=== PATIENT | female | born 1935 | race Caucasian/White ===

== ENCOUNTER 2020-02-18 12:14 | Outpatient (REF) | payer MEDICARE, SELFPAY ==
--- NOTE | 2020-02-18 | MM_ITS ---
EXAMINATION: MM DIAGNOSTIC DIGITAL BREAST TOMOSYNTHESIS, BILATERAL CLINICAL INFORMATION: Probable benign calcifications posterior outer left breast initially noted at baseline exam 2018. Due for yearly. The lifetime risk of breast cancer based on the Tyrer-Cuzick Model is 1.1%. COMPARISON: Mammography: 03/17/2019, 09/11/2018 (diagnostic, BI-RADS 3). TECHNIQUE: Digital breast tomosynthesis is performed in both the craniocaudal and mediolateral oblique views along with computer-aided detection (CAD). Synthesized 2D images are generated from the tomosynthesis. Additional magnification left CC and magnification left ML x2 views are obtained. FINDINGS: There are scattered areas of fibroglandular density (ACR BI-RADS breast composition Category b). Parenchymal pattern is similar to prior studies. There is no interval mass or architectural abnormality or abnormal calcifications. There is an intramammary node again seen posterior upper outer left breast. Scattered dermal lesions again overlie each breast. The left breast calcifications for follow-up regionally distributed posterior outer breast appear round and similar in number and distribution to prior diagnostic exam. Calcifications will be reassessed again at next bilateral annual mammography to include magnification views. Results are provided to the patient at time of visit by the technologist. IMPRESSION: No significant changes from prior studies. Probable benign left breast calcifications stable. ASSESSMENT: BI-RADS 3: Probably Benign RECOMMENDATION: Diagnostic mammography at time of next annual exam, due in 12 months. This patient's information was entered into a reminder system with a target due date for their next mammogram.
== END 2020-02-18 12:15 | disposition home or self-care (01) ==
LOC: HO.MAMMO 12:14
PROVIDERS: PCP Internal Medicine Medical Oncology; Visit Provider Internal Medicine Medical Oncology
DX: R92.1 Mammographic calcification found on diagnostic imaging of breast (principal)
CPT/HCPCS: 77062; 77066; 78013

== ENCOUNTER 2021-02-19 12:07 | Outpatient (REF) | payer MEDICARE, SELFPAY ==
--- NOTE | ~2021-02-19 | MM_ITS ---
EXAMINATION: MM DIAGNOSTIC DIGITAL BREAST TOMOSYNTHESIS, BILATERAL CLINICAL INFORMATION: Due for yearly. Also follow-up probable benign calcifications posterior outer left breast initially noted at baseline exam 2018. The lifetime risk of breast cancer based on the Tyrer-Cuzick Model is 1%. COMPARISON: Mammography: 02/18/2020, 03/17/2019, 09/11/2018 (baseline). TECHNIQUE: Digital breast tomosynthesis is performed in both the craniocaudal and mediolateral oblique views along with computer-aided detection (CAD). Synthesized 2D images are generated from the tomosynthesis. Additional views are provided obtained: Exaggerated right CC, right MLO, magnification left CC, magnification left ML. FINDINGS: There are scattered areas of fibroglandular density (ACR BI-RADS breast composition Category b). Parenchymal pattern is similar to prior exams. There is stable parenchymal asymmetry central 12:00 right breast similar to prior exams. Intramammary node again seen posterior upper outer left breast. There is no developing density or interval mass or architectural abnormality. The fine calcifications for follow-up posterior outer left breast are stable and now considered to be benign. Results are provided to the patient at time of visit by the technologist. MM/MM tomosynthesis diagnostic BI IMPRESSION: No significant changes from prior studies. ASSESSMENT: BI-RADS 2: Benign RECOMMENDATION: Routine annual mammography screening. This patient's information was entered into a reminder system with a target due date for their next mammogram.
== END 2021-02-19 12:08 | disposition home or self-care (01) ==
LOC: HO.MAMMO 12:07
PROVIDERS: Visit Provider Internal Medicine Medical Oncology
DX: R92.1 Mammographic calcification found on diagnostic imaging of breast (principal)
CPT/HCPCS: 77062; 77066

== ENCOUNTER 2022-04-09 10:07 | Outpatient (REF) | payer MEDICARE, SELFPAY ==
--- NOTE | ~2022-04-09 | MM_ITS ---
EXAMINATION: MM SCREENING DIGITAL BREAST TOMOSYNTHESIS, BILATERAL CLINICAL INFORMATION: Screening. Asymptomatic. COMPARISON: Mammography: 02/19/2021, 02/18/2020, 03/17/2019, 09/11/2018 (baseline) TECHNIQUE: Digital breast tomosynthesis is performed in both the craniocaudal and mediolateral oblique views along with computer-aided detection (CAD). Synthesized 2D images are generated from the tomosynthesis. Additional right MLO view is provided. FINDINGS: There are scattered areas of fibroglandular density (ACR BI-RADS breast composition Category b). Parenchymal pattern is similar to prior studies. Again, there is a chronic asymmetric density central upper right breast mid depth. Left breast has probable intramammary node posterior upper outer quadrant. Calcifications posterior central outer left breast are stable. There is no developing density or interval mass or architectural abnormality from prior studies. No significant changes. MM/MM tomosynthesis screening BI IMPRESSION: No significant changes from prior exams. ASSESSMENT: BI-RADS 2: Benign RECOMMENDATION: Routine annual mammography screening. This patient's information was entered into a reminder system with a target due date for their next mammogram.
== END 2022-04-09 10:08 | disposition home or self-care (01) ==
LOC: HO.MAMMO 10:07
PROVIDERS: PCP Internal Medicine; Visit Provider Internal Medicine Medical Oncology
DX: Z12.31 Encounter for screening mammogram for malignant neoplasm of breast (principal)
CPT/HCPCS: 77063; 77067

== ENCOUNTER 2023-04-22 10:28 | Outpatient (REF) | payer MEDICARE, SELFPAY ==
--- NOTE | ~2023-04-22 | MM_ITS ---
EXAMINATION: MM SCREENING DIGITAL BREAST TOMOSYNTHESIS, BILATERAL CLINICAL INFORMATION: Screening. Asymptomatic. COMPARISON: Mammography: This study is compared with prior exams dating back to 2019. TECHNIQUE: Digital breast tomosynthesis is performed in both the craniocaudal and mediolateral oblique views along with computer-aided detection (CAD). Synthesized 2D images are generated from the tomosynthesis. FINDINGS: There are scattered areas of fibroglandular density (ACR BI-RADS breast composition Category b). There are no significant masses, abnormal calcifications, or other abnormalities. Few, bilateral benign calcifications are present in each breast. MM/MM tomosynthesis screening BI IMPRESSION: No mammographic evidence of malignancy. ASSESSMENT: BI-RADS BI-RADS 2 - Benign Findings RECOMMENDATION: Routine annual mammography screening. 1 year F/U This examination should not preclude the clinical evaluation of a suspicious palpable abnormality. This patient's information was entered into a reminder system with a target due date for their next mammogram.
== END 2023-04-22 10:29 | disposition home or self-care (01) ==
LOC: HO.MAMMO 10:28
PROVIDERS: PCP Internal Medicine Medical Oncology; Visit Provider Internal Medicine Medical Oncology
DX: Z12.31 Encounter for screening mammogram for malignant neoplasm of breast (principal)
CPT/HCPCS: 77063; 77067

== ENCOUNTER → 2023-04-22 10:45 | Outpatient (BNV) | payer MEDICARE, SELFPAY | PROVIDERS: PCP Internal Medicine Medical Oncology; Visit Provider Radiology Diagnostic Radiology | DX: Z12.31 Encounter for screening mammogram for malignant neoplasm of breast (principal) | CPT/HCPCS: 77063; 77067 ==

== ENCOUNTER 2024-10-05 13:59 | Outpatient (REF) | payer MEDICARE, SELFPAY ==
--- OUTSIDE RECORDS SUMMARY | 2024-10-05 15:23 | XMS_ITS ---
Author Organization Zain Steiner III, MD Address [address] [place] [address] Care Team Providers Care Code Enforcement Supervisor Name Role Phone Zain Steiner Primary Care Provider REASON FOR VISIT follow up Social History Sex Assigned At : Social History Observation Description Sex Assigned At Female Encounters Encounter Location Date Provider Diagnosis Zain Steiner III, MD [address] [place] [address] [place] [address] 10/01/2024 Zain Steiner Plan Of Treatment Next Appt Details Provider Name:Zain Steiner, 10/29/2024 10:00:00 AM, [address] [place] [address] [place], [address], Provider Name:Zain Steiner, 03/28/2025 10:30:00 AM, [address] [place] [address] [place], [address], Progress Notes * TOMY GordoWileyOB:1935 (89 yo F)Acc No.[id number]:10/01/2024 Progress Notes Patient:?Gwendolyn HUITRON Provider:?Zain Steiner MD :1935???Age:89 Y???Sex:Female D ate:10/01/2024 Address:[address], [id number] Subjective: * Chief Complaints: * ???1. Follow up. * Medical History:? Objective: * Vitals:? Assessment: Plan: * Treatment: * Images: * The named appointment provid er may or may not be the originator of this progress note, and it is not deemed complete until electronically signed by the appointment provider. Sign off status: Pending * Provider:?Zain Steiner MD Date:?09/16 Generated for Ellyn christie/Tete/Raquel on:?10/05/2024 03:23 PM EDT
--- OUTSIDE RECORDS SUMMARY | 2024-10-05 15:24 | XMS_ITS | Patient Health Record ---
Author Organization Zain Steiner III, MD Address [address] [place] [address] [place] [address] Care Team Providers Care Microbiology Analyst Name Role Phone Zain Steiner Primary Care Provider Allergies Allergen (clinical drug ingredient) Drug/Non Drug Allergy documented on EMR Reaction Allergy Type Onset Date Status Seasonale Unknown Drug Allergy Active diaz balwinder (uncoded) Unknown Allergy Active Reason For Referral Reason Urgent request pleas e Evaluate and treatment for ? Bladder cancer bladder mass seen on Ct scan abd/pelvis Diagnosis 1 Weight loss (R63.4) Diagnosis 2 Bladder mass (N32.89 ) Referral Organization Zain Steiner III, MD Referring Provider First Name Zain Referring Provider Last Name Jatin Referring Provider Speciality Internal M edicine Referred Provider [facility], Urology Referred Provider Specialty Urology General Notes Jil Bruno CMA 10/05 11:26:17 AM >Ashwini called [place] [facility] they stated the referral/progress note/testing needs to be faxed to them stating this is a urgent request, Jil Bruno CMA 10/05/2024 11:49:39 AM >ref/progress note;/ Ct scan abd pelvis faxed to [place] [facility], Ashwini Cristobal 10/05/2024 01:48:58 PM > [facility] has received the URGENT referral. It is being brought to the nurse to be triaged LENI Referral Priority Routine Medications Medication SIG (Take, Route, Frequency, Duration) Notes Start Date End Date Status Atorvastatin Calcium 20 mg TAKE 1 TABLET DAILY Active Metoprolol Tartrate 100 MG 1 tablet with food Orally Twice a day 03/25/2024 Active traZODone HCl 50 MG 1 tablet at bedtime if needed Orally Once a day for 30 days 09/30/2024 Active Immunizations Vaccine Route Administration Date Status Comme nts COVID- 19 Vaccine Unknown 06/22/2020 Administered COVID- 19 Vaccine Unknown 07/13/2020 Administered Tetanus and Diphtheria Toxoids Adsorbed IM Intramuscular 12/12/2021 Administered COVID PFIZER Unknown 03/15/2021 Administered COVID PFIZER Unknown 06/22/2020 Administered COVID PFIZER Unknown 07/13/2020 Administered Decline: Influenza Unknown 03/20/2023 Refused Social History Tobacco Use: Social History Observation Description Date Details (start date - stop date) Never Smoker NA - NA Sex Assigned At : Social History Observation Description Sex Assigned At Female Tobacco Use/Smoking Question Answer Notes Patient is a nonsmoker Additional Findings: Tobacco Non-User Aggressive non-smoker Alcohol Screen Question Answer Notes Did you have a drink containing alcohol in the p ast year? No Points 0 Interpretation Negative Problems Problem Type SNOMED Code ICD Code Onset Dates Problem Status W/U Status Risk Notes Problem Weight decreased (732526947) Weight loss, abnormal (R63.4) Active confirmed Since her l ast visit she has lost 15 pounds and has a poor appetite. The cause is not immediately apparent. Her workup has been started. Problem 60535314 Essential hypertension (I10) Active confirmed Her blood pressure is 138/70. No changes in the regimen were needed. Problem 480200632 Environmental allergies (Z91.09) Active confirmed Her allergies have been minimal recently. No change in her regimen was needed. Problem Hyperlipidemia, unspecified hyperlipidemia type (E78.5) Active confirmed No recent comprehensive blood work is available. Blood work has been ordered prior to her next visit. No change in her medications was needed today. Problem 61774821 Bilateral hearing loss, unspecified hearing loss type (H91.93) Active confirmed She will notif y me if she wants to see the railroad engineer to consider amplification. We communicated fairly well today. Problem 99838532 Cataract of both eyes, unspecified cataract type (H26.9) Active confirmed Her cataract surgery was successful and she is pleased with her improved vision. Problem 15141915 Allergic rhinitis, unspecified seasonality, unspecified trigger (J30.9) Active confirmed She has successfully used eygq-hyr-npjbqv r medication and will continue to do so. Problem 480369172 Bladder mass (N32.89) Active confirmed Vital Signs Heart Rate 88 /min 09/30/2024 Temperature 98.6 degrees Fahrenheit 09/30/2024 Oximetry 97, 97.0 % 06/03/2024 Blood pressure diastolic 70 mm Hg 09/30/2024 Height 65 in 09/30/2024 Blood pressure systolic 138 mm Hg 09/30/2024 Weight 129 lbs 09/30/2024 BMI 21.46 kg/m2 09/30/2024 Encounters Encounter Location Date Provider Diagnosis Zain Steiner III, MD [address] [place] [address] [place] [address] 11/25/2023 Zain Steiner Essential hypertensi on I10 ; Hyperlipidemia, unspecified hyperlipidemia type E78.5 ; Allergic rhinitis, unspecified seasonality, unspecified trigger J30.9 ; Environmental allergies Z91.09 ; Age-related nuclear cataract of both eyes H25.13 ; Breast calcifications R92.1 and Bilateral hearing loss, unspecified hearing loss type H91.93 Zain Steiner III, MD [address] [place] [address] [place] [address] 03/25/2024 Zain Steiner Essential hypertensi on I10 ; Allergic rhinitis, unspecified seasonality, unspecified trigger J30.9 ; Environmental allergies Z91.09 ; Age-related nuclear cataract of both eyes H25.13 and Bilateral hearing loss, unspecified hearing loss type H91.93 Zain Steiner III, MD [address] [place] [address] [place] [address] 06/03/2024 Zain Steiner Essential hypertensi on I10 ; Hyperlipidemia, unspecified hyperlipidemia type E78.5 ; Environmental allergies Z91.09 and Allergic rhinitis, unspecified seasonality, unspecified trigger J30.9 Zain Steiner III, MD [address] [place] [address] [place] [address] 09/30/2024 Zain Steiner Essential hypertensi on I10 ; Weight loss, abnormal R63.4 ; Hyperlipidemia, unspecified hyperlipidemia type E78.5 ; Environmental allergies Z91.09 ; Allergic rhinitis, unspecified seasonality, unspecified trigger J30.9 and Bilateral hearing loss, unspecified hearing loss type H91.93 Zain Steiner III, MD [address] [place] [address] [place] [address] 10/05/2024 Zain Steiner Weight loss R63.4 an d Bladder mass N32.89 Assessments Encounter Date Diagnosis (ICD Code) Assessment Notes Treat ment Notes Treatment Clinical Notes 11/25/2023 Essential hypertension (ICD-10 - I10) Her blood pressure is well controlled and no change in her regimen was necessary today. 11/25/2023 Hyperlipidemia, unspecified hyperlipidemia type (ICD-10 - E78.5) Her lipids are currently stable and no change in her regimen was needed. 03/25/2024 Essential hypertension (ICD-10 - I10) Her blood pressure was unusually high at 150/90. Metoprolol for her blood pressure. He cannot remember whether she took it or not this morning. She was given an appointment in near future returned to check it again. If it remains high her medications will be adjusted. 03/25/2024 Allergic rhinitis, unspecified seasonality, unspecified trigger (ICD-10 - J30.9) She has successfully used oqxb-mpt-jserfwt medication and will continue to do so. 06/03/2024 Essential hypertension (ICD-10 - I10) Her blood pressure is in the normal range. I recommended that she maintain a body mass index in the normal range through a diet restricted in fat calories and sodium combined with regular physical activity. 06/03/2024 Hyperlipidemia, unspecified hyperlipidemia type (ICD-10 - E78.5) No recent comprehensive blood work is available. Blood work has been ordered prior to her next visit. No change in her medications was needed today. 09/30/2024 Weight loss, abnorma l (ICD-10 - R63.4) Since her last visit she has lost 15 pounds and has a poor appetite. The cause is not immediately apparent. Her workup has been started. 09/30/2024 Essential hypertension (ICD-10 - I10) Her blood pressure is 138/70. No changes in the regimen were needed. 10/05/2024 Weight loss (ICD-10 - R63.4) 11/25/2023 Allergic rhinitis, unspecified seasonality, unspecified trigger (ICD-10 - J30.9) She has successfully used evcg-brs-dheuhij medication and will continue to do so. 03/25/2024 Environmental allergies (ICD-10 - Z91.09) Her allergies have been minimal recently. No change in her regimen was needed. 06/03/2024 Environmental allergies (ICD-10 - Z91.09) Her allergies have been minimal recently. No change in her regimen was needed. 09/30/2024 Hyperlipidemia, unspecified hyperlipidemia type (ICD-10 - E78.5) 10/05/2024 Bladder mass (ICD-10 - N32.89) 11/25/2023 Environmental allergies (ICD-10 - Z91.09) Her allergies have been minimal recently. No change in her regimen was needed. 03/25/2024 Age-related nuclear cataract of both eyes (ICD-10 - H25.13) Her vision has not changed. She will notify me if she begins to have significant changes in her acuity. 06/03/2024 Allergic rhinitis, unspecified seasonality, unspecified trigger (ICD-10 - J30.9) She has successfully used qgrt-drm-ggzvbez medication and will continue to do so. 09/30/2024 Environmental allergies (ICD-10 - Z91.09) 11/25/2023 Age-related nuclear cataract of both eyes (ICD-10 - H25.13) Her vision has not changed. She will notify me if she begins to have significant changes in her acuity. 03/25/2024 Bilateral hearing loss, unspecified hearing loss type (ICD-10 - H91.93) She will notify me if she wants to see the railroad engineer to consider amplification. We communicated fairly well today. 09/30/2024 Allergic rhinitis, unspecified seasonality, unspecified trigger (ICD-10 - J30.9) She has successfully used tzuj-mqo-leywzpa medication and will continue to do so. 11/25/2023 Breast calcification s (ICD-10 - R92.1) A recent mammogram was unremarkable. She is examining her breast recently with no findings. 09/30/2024 Bilateral hearing loss, unspecified hearing loss type (ICD-10 - H91.93) She will notify me if she wants to see the railroad engineer to consider amplification. We communicated fairly well today. 11/25/2023 Bilateral hearing loss, unspecified hearing loss type (ICD-10 - H91.93) She will notify me if she wants to see the railroad engineer to consider amplification. We communicated fairly well today. Plan Of Treatment Pending Test Test Name Order Date PROFILE, FASTING (COMPREHENSIVE METABOLI C) 05/31/2020 PROFILE, FASTING (COMPREHENSIVE METABOLI C) 12/12/2022 PROFILE, FASTING (COMPREHENSIVE METABOLI C) 09/28/2019 PROFILE, FASTING (COMPREHENSIVE METABOLI C) 03/07/2021 PROFILE, FASTING (COMPREHENSIVE METABOLI C) 09/13/2021 PROFILE, FASTING (COMPREHENSIVE METABOLI C) 07/25/2023 PROFILE, FASTING (COMPREHENSIVE METABOLI C) 06/03/2024 PROFILE, FASTING (COMPREHENSIVE METABOLI C) 08/04/2018 PROFILE, FASTING (COMPREHENSIVE METABOLI C) 02/29/2020 PROFILE, FASTING (COMPREHENSIVE METABOLI C) 09/12/2022 PROFILE, FASTING (COMPREHENSIVE METABOLI C) 03/25/2019 PROFILE, FASTING (COMPREHENSIVE METABOLI C) 11/29/2020 PROFILE, FASTING (COMPREHENSIVE METABOLI C) 03/20/2023 PROFILE, FASTING (COMPREHENSIVE METABOLI C) 11/23/2019 PROFILE, FASTING (COMPREHENSIVE METABOLI C) 06/15/2021 PROFILE, FASTING (COMPREHENSIVE METABOLI C) 03/18/2022 PROFILE, FASTING (COMPREHENSIVE METABOLI C) 11/25/2023 LIPID PANEL 03/18/2022 LIPID PANEL 05/31/2020 LIPID PANEL 12/12/2022 LIPID PANEL 09/28/2019 LIPID PANEL 09/13/2021 LIPID PANEL 07/25/2023 LIPID PANEL 08/04/2018 LIPID PANEL 02/29/2020 LIPID PANEL 09/12/2022 LIPID PANEL 03/25/2019 LIPID PANEL 03/20/2023 LIPID PANEL 11/23/2019 LDH 11/23/2019 TSH (THYROID STIMULATING HORMONE) 2024 CEA 09/30/2024 CBC w DIFF 09/12/2022 CBC w DIFF 03/25/2019 CBC w DIFF 03/20/2023 CBC w DIFF 03/18/2022 CBC w DIFF 11/23/2019 CBC w DIFF 03/07/2021 CBC w DIFF 05/31/2020 CBC w DIFF 12/12/2022 CBC w DIFF 09/28/2019 CBC w DIFF 09/13/2021 CBC w DIFF 11/29/2020 CBC w DIFF 08/04/2018 CBC w DIFF 02/29/2020 CBC w DIFF 06/15/2021 SED RATE (ESR) 09/30/2024 CYTOLOGY (NON-VETERINARY VIRUS SERUM INSPECTOR) 10/05/2024 CT ABD & PELVIS WITH IV CONT ONLY 2024 MAMMOGRAM DIGITAL BILATERAL SCREEN 03/18 MAMMOGRAM DIGITAL UNILATERAL HONEY LT 05/0 06/2018 US BREAST LEFT 08/04/2018 US BREAST RIGHT 08/04/2018 CBC WITH AUTO DIFF 11/25/2023 CBC WITH AUTO DIFF 06/03/2024 CBC WITH AUTO DIFF 07/25/2023 Lipid Panel 11/29/2020 Lipid Panel 06/15/2021 Lipid Panel 11/25/2023 Lipid Panel 03/07/2021 Lipid Panel 06/03/2024 Free T4 (Free Thyroxine) 09/30/2024 Next Appt Details Provider Name:Zain Steiner, 10/29/2024 10:00:00 AM, [address] [place] [address] [address], [place], [address], Provider Name:Zain Steiner, 03/28/2025 10:30:00 AM, [address] [place] [address] [address], [place], [address], Insurance Providers Payer Name Payer Address Payer Phone Subscriber Number Group Number Insured Name Patient Relationship to Insured Coverage Start Date Coverage End Date MEDICARE NGS [address] [place] [phone] [id number] Gwendolyn Gutierrez Self - patient is the insured Medical (General) History Medical History History ICD Code Allergic rhinitis J30.9 environmental allergies 2016 one episode of syncope with tachyca rdia cataracts essential hypertension declines colonoscopy overweight Surgical History Surgery Date(Month/Year) No history Cataract Surgery, bilateral 08/08 Hospitalization History Reason Date(Month/Year) No history no history of colonoscopy, declined all vaginal no surgical history reported
--- OUTSIDE RECORDS SUMMARY | 2024-10-05 15:24 | XMS_ITS ---
Author Organization Zain Steiner III, MD Address [address] [place] [address] [place] [address] Care Team Providers Care Supervisor Power Reactor Name Role Phone Zain Steiner Primary Care Provider [phone] Reason For Referral Reason Urgent request pleas e Evaluate and treatment for ? Bladder cancer bladder mass seen on Ct scan abd/pelvis Diagnosis 1 Weight loss (R63.4) Diagnosis 2 Bladder mass (N32.89 ) Referral Organization Zain Steiner III, MD Referring Provider First Name Zain Referring Provider Last Name Jatin Referring Provider Speciality Internal M edicine Referred Provider [facility], Urology Referred Provider Specialty Urology General Notes Jil Bruno CMA 10/05 11:26:17 AM >Ashwini called [facility] de[facility] they stated the referral/progress note/testing needs to be faxed to them stating this is a urgent request, Jil Bruno CMA 10/05/2024 11:49:39 AM >ref/progress note;/ Ct scan abd pelvis faxed to [facility], Ashwini Cristobal 10/05/2024 01:48:58 PM > [facility] has received the URGENT referral. It is being brought to the nurse to be triaged LENI Referral Priority Routine REASON FOR VISIT Message Social History Sex Assigned At : Social History Observation Description Sex Assigned At Female Encounters Encounter Location Date Provider Diagnosis Zain Steiner III, MD [address] [place] [address] [place] [address] 10/05/2024 Zain Steiner Weight loss R63.4 and Bladder mass N32.89 Assessments Encounter Date Diagnosis (ICD Code) Assessment Notes Treatment Notes Treatment Clinical Notes 10/05/2024 Weight loss (ICD-10 - R63.4) 10/05/2024 Bladder mass (ICD-10 - N32.89) Plan Of Treatment Pending Test Test Name Order Date CYTOLOGY (NON-MRI TECH) 10/05/2024 Referrals Referral Date Details 10/05/2024 10/05/2024, Urgent r equest please Evaluate and treatment for ? Bladder cancer bladder mass seen on Ct scan abd/pelvis, Urology [facility] Next Appt Details Provider Name:Zain Steiner, 10/29/2024 10:00:00 AM, [address] [place] [address] [address], [place], [address], Provider Name:Zain Steiner, 03/28/2025 10:30:00 AM, [address] [place] [address] [address], [place], [address], Progress Notes * Kayce HUITRONOB:1935 (89 yo F)Acc No.[id number]:10/05/2024 Patient:?Gwendolyn HUITRON :1935???Age:89 Y???Sex:Female Address:[address], [address] Subjective: * Chief Complaints: * ???Message * Medical History:? * Surgical History:? * Hospitalization/Major Diagno stic Procedure:? * Medications:? Objective: * Vitals:? * Physical Examination:? Assessment: * Assessment: 1.?Weight loss - R63.4???2.? Bladder mass - N32.89??? Plan: * Treatment: 2.?Bladder mass?LAB: CYTOLOGY (NON-MRI TECH)? Referral To:[facility]??Urology ?Reason:Urgent request please Evaluate and treatment for ? Bladder cancer bladder mass seen on Ct scan abd/pelvis * Procedure Codes:? * * Date:? Consultation Request Notes Referral Date Referring Provider Referred Provider Not es 10/05/2024 Steiner, Zain [facility], Urology Urgent request please Evaluate and treatment for ? Bladder cancer bladder mass seen on Ct scan abd/pelvis
--- OUTSIDE RECORDS SUMMARY | 2024-10-05 15:24 | XMS_ITS ---
Author Organization Zain Steiner III, MD Address [address] [place] [address] [address] [place] [address] Care Team Providers Care Facing Slitter Name Role Phone Zain Steiner Primary Care Provider Allergies Allergen (clinical drug ingredient) Drug/Non Drug Allergy documented on EMR Reaction Allergy Type Onset Date Status Seasonale Unknown Drug Allergy Active diaz balwinder (uncoded) Unknown Allergy Active REASON FOR VISIT Involuntary wt loss, insomnia, Hypertension, Hyperlipidemia, Bilateral hearing loss Medications Medication SIG (Take, Route, Frequency, Duration) Notes Start Date End Date Status Atorvastatin Calcium 20 mg TAKE 1 TABLET DAILY Active Metoprolol Tartrate 100 MG 1 tablet with food Orally Twice a day 03/25/2024 Active traZODone HCl 50 MG 1 tablet at bedtime if needed Orally Once a day for 30 days 09/30/2024 Active Social History Tobacco Use: Social History Observation Description Date Details (start date - stop date) Never Smoker NA - NA Sex Assigned At : Social History Observation Description Sex Assigned At Female Tobacco Use/Smoking Question Answer Notes Patient is a nonsmoker Additional Findings: Tobacco Non-User Aggressive non-smoker Problems Problem Type SNOMED Code ICD Code Onset Dates Problem Status W/U Status Risk Notes Problem Weight decreased (518341179) Weight loss, abnormal (R63.4) Active confirmed Since her last visit she has lost 15 pounds and has a poor appetite. The cause is not immediately apparent. Her workup has been started. Vital Signs Temperature 98.6 degrees Fahrenheit 10/01/19 25 Blood pressure systolic 138 mm Hg 10/01/19 25 Blood pressure diastolic 70 mm Hg 025 Heart Rate 88 /min 09/30/2024 Height 65 in 09/30/2024 Weight 129 lbs 09/30/2024 BMI 21.46 kg/m2 09/30/2024 Encounters Encounter Location Date Provider Diagnosis Zain Steiner III, MD [address] [place] [address] [place] [address] 09/30/2024 Zain Steiner Essential hypertensi on I10 ; Weight loss, abnormal R63.4 ; Hyperlipidemia, unspecified hyperlipidemia type E78.5 ; Environmental allergies Z91.09 ; Allergic rhinitis, unspecified seasonality, unspecified trigger J30.9 and Bilateral hearing loss, unspecified hearing loss type H91.93 Assessments Encounter Date Diagnosis (ICD Code) Assessment Notes Treat ment Notes Treatment Clinical Notes 09/30/2024 Essential hypertension (ICD-10 - I10) Her blood pressure is 138/70. No changes in the regimen were needed. 09/30/2024 Weight loss, abnorma l (ICD-10 - R63.4) Since her last visit she has lost 15 pounds and has a poor appetite. The cause is not immediately apparent. Her workup has been started. 09/30/2024 Hyperlipidemia, unspecified hyperlipidemia type (ICD-10 - E78.5) 09/30/2024 Environmental allergies (ICD-10 - Z91.09) 09/30/2024 Allergic rhinitis, unspecified seasonality, unspecified trigger (ICD-10 - J30.9) She has successfully used eutp-jqq-jebpfns medication and will continue to do so. 09/30/2024 Bilateral hearing loss, unspecified hearing loss type (ICD-10 - H91.93) She will notify me if she wants to see the special needs child caregiver to consider amplification. We communicated fairly well today. Plan Of Treatment Medication Medication Name Sig Start Date Stop Date Notes Atorvastatin Calcium 20 mg TAKE 1 TABLET DAILY Metoprolol Tartrate 100 MG 1 tablet with food Orally Twice a day 03/25/2024 traZODone HCl 50 MG 1 tablet at bedtime if needed Orally Once a day for 30 days 09/30/2024 Pending Test Test Name Order Date TSH (THYROID STIMULATING HORMONE) 2024 CEA 09/30/2024 SED RATE (ESR) 09/30/2024 CT ABD & PELVIS WITH IV CONT ONLY 2024 Free T4 (Free Thyroxine) 09/30/2024 Next Appt Details Follow Up: 2 Weeks, Reason: ov Provider Name:Zain Steiner, 10/29/2024 10:00:00 AM, [address] [facility] [address], [place], [address], Provider Name:Zain Steiner, 03/28/2025 10:30:00 AM, [address] [facility] [address], [place], [address], Progress Notes * Kayce HUITRONOB:1935 (89 yo F)Acc No.[id number]:09/30/2024 Progress Notes Patient:?Gwendolyn HUITRON Provider:?Zain Steiner MD :1935???Age:89 Y???Sex:Female D ate:09/30/2024 Address:[address], [id number] Subjective: * Chief Complaints: * ???Involuntary wt lossInsomn iaHypertensionHyperlipidemiaBilateral hearing loss * HPI: ???COVID-19 Screening:?She returns for a routine scheduled visit to manage her medical issues.? She came with her .? An unexpected finding was a 15 pound weight loss.Her appetite has been poor and she has been eating less.? She has had no nausea or vomiting or pain.? The remainder of her exam and blood work was unremarkable and did not explain the finding.? She denies any significant depression.? Thyroid function tests were ordered and she will return for more complete examination in the very near future.? She denies any recent difficulty from the pollen season. ?Questions?Have you had any new onset fever, chills, cough, congestion, sore throat, shortness of breath, muscle aches??No * ROS:?General/Constitutional:?pain?only normal aches and pains.?Chills?denies.?Fatigue?admits.?Fever?denies.?ENT:?Decreased hearing?in both ears.?Respiratory:?Cough?denies.?Cardiovascular:?Chest pain with exertion?denies.?Dyspnea on exertion?denies.?Shortness of breath?denies.?Gastrointestinal:?Constipation?occasional.?Decreased appetite?denies.?Diarrhea?denies.?Heartburn?denies.?Nausea?denies.?Rectal bleeding?denies.?Vomiting?denies.?Hematology:?bruising?denies.?petechiae?denies.?Swollen glands?none have been noted.?Genitourinary:?Frequent urination?at night.?Musculoskeletal:?Muscle aches?denies.?Painful joints?denies.?Sciatica?denies.?Weakness?denies.?Skin:?Itching?denies.?Rash?denies.?Skin lesion(s)?denies.?Neurologic:?Difficulty speaking?denies.?Dizziness?denies.?Headache?denies.?Low back pain?denies.?Psychiatric:?Depressed mood?denies.? * Medical History:? * Surgical History:?Cataract S urgery, bilateral 08/08No history * Hospitalization/Major Diagno stic Procedure:?no surgical history reported all vaginal no history of colonoscopy, declined No history * Family History:?Father: dece ased 80 yrs, No information.?Mother: 87 yrs, Psychiatric problems.?Children: alive.?2 son(s) , 1 daughter(s) - healthy. .? She did not know her father. She was raised by her grandparents. There is no known family history of cancer. Her mother had mental health issues. She has 3 children, 2 sons and a daughter and 4 grandchildren, all of whom are healthy and well. She is not aware of any other history of mental health issues. She is not aware of any substance use disorder. * Social History:?Tobacco Use:?Tobacco Use/Smoking?Patient is a?nonsmoker ?Additional Findings: Tobacco Non-User?Aggressive non-smoker ???She was born in [place], [place]. She has been to Jaquan for 57 years. She has 3 healthy children and 4 healthy grandchildren. 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 Her is a program director/music director at the [employer]. She has no occupational exposures. * Medications:?TakingMetoprolo l Tartrate 100 MG Tablet 1 tablet with food Orally Twice a day Atorvastatin Calcium 20 mg Tablet TAKE 1 TABLET DAILY Medication List reviewed and reconciled with the patientTaking Metoprolol Tartrate 100 MG Tablet 1 tablet with food Orally Twice a day Taking Atorvastatin Calcium 20 mg Tablet TAKE 1 TABLET DAILY Medication List reviewed and reconciled with the patient * Allergies:?emily real[Allergies Verified] Objective: * Vitals:?Ht: 65, Wt:129, BMI: 21.46, BP:138/70, HR:88, Temp:98.6, Wt-k.51. * Examination: ???General Examination: ?GENERAL APPEARANCE:?pleasant, well nourished, well developed, in no acute distress, calm and relaxed, elderly woman.?HEAD:?atraumatic, normocephalic.?EYES:?eomi, perrla, anicteric, conjugate.?EARS:?normal.?NOSE:?septum intact.?ORAL CAVITY:?normal, unremarkable.?NECK/THYROID:?no jugular venous distention, no carotid bruit, thyroid normal.?LYMPH NODES:?no enlarged lymph nodes,spleen normal.?SKIN:?no suspicious lesions, anicteric.?HEART:?no clicks, gallops, murmurs, or rubs, regular rhythm, S1, S2 normal, no s3, or vascular bruits.?LUNGS:?clear to auscultation .?BREASTS:?Not examined.?ABDOMEN:?bowel sounds normal, no ascites, no organomegaly, no mass, centripital obesity.?RECTAL EXAM:?not examined.?MUSCULOSKELETAL:?extremities unremarkable, no clubbing, cyanosis or edema.?PERIPHERAL PULSES:?normal.?NEUROLOGIC:?alert and oriented, cranial nerves 2-12 grossly intact, deep tendon reflexes 2+ symmetrical, motor strength normal upper and lower extremities, sensory exam intact.?PSYCH:?alert, oriented.? Assessment: * Assessment: 1.?Weight loss, abnormal - R 63.4 (Primary)???Notes :Since her last visit she has lost 15 pounds and has a poor appetite.? The cause is not immediately apparent.? Her workup has been started.???2.?Essential hypertension - I10???Notes :Her blood pressure is 138/70.? No changes in the regimen were needed.???3.?Hyperlipidemia, unspecified hyperlipidemia type - E78.5???4.?Environmental allergies - Z91.09???5.?Allergic rhinitis, unspecified seasonality, unspecified trigger - J30.9???Notes :She has successfully used xqqm-rzh-gfapmnr medication and will continue to do so.???6.?Bilateral hearing loss, unspecified hearing loss type - H91.93???Notes :She will notify me if she wants to see the special needs child caregiver to consider amplification. We communicated fairly well today.??? Plan: * Treatment: 2.?Essential hypertension?LAB: TSH (THYROID STIMULATING HORMONE) ?LAB: CEA ?LAB: SED RATE (ESR) ?LAB: Free T4 (Free Thyroxine) 3.?Hyperlipidemia, unspecifi ed hyperlipidemia type?LAB: TSH (THYROID STIMULATING HORMONE) ?LAB: CEA ?LAB: SED RATE (ESR) ?LAB: Free T4 (Free Thyroxine) 4.?Others? Continue Atorvastatin Calcium Tablet, 20 mg, TAKE 1 TABLET DAILY;?Continue Metoprolol Tartrate Tablet, 100 MG, 1 tablet with food, Orally, Twice a day;?Start traZODone HCl Tablet, 50 MG, 1 tablet at bedtime if needed, Orally, Once a day, 30 days, 30 Tablet, Refills 3.?? * Procedure Codes:? * Preventive Medicine:? ??Counseling:?Care goal follow-up plan:?Counseling for abnormal BMI given?Yes ?Below Normal BMI Follow-up?Dietary education for weight gain, Dietary management education, guidance, and counseling, Feeding regime, Lifestyle education regarding diet, Nutrition / feeding management, Prescribed diet education, Special diet education, Intervention, Order not done: Medical or Other reason not done * Follow Up:?2 Weeks (Reason: ov) * Images: * Sign off status: Completed true * Provider:?Zain Steiner MD Date:?09/16 Generated for Ellyn christie/Tete/eTronsmitting on:?10/05/2024 03:23 PM EDT History and Physical Notes * HPI (History of Present Illness) Category Sub-Category Detail Notes COVID-19 Screening Questions Have you had any new onset fever, chills, cough, congestion, sore throat, shortness of breath, muscle aches?: No Examination Category Sub-Category Detail Notes General Examination GENERAL APPEARANCE: pleasant , well nourished, well developed, in no acute distress, calm and relaxed, elderly woman HEAD: atraumatic, normocep halic EYES: eomi, perrla, anicte cecelia, conjugate EARS: normal NOSE: septum intact NECK/THYROID: no jugular venous di stention, no carotid bruit, thyroid normal HEART: no clicks, gallops, murmurs, or rubs, regular rhythm, S1, S2 normal, no s3, or vascular bruits LUNGS: clear to auscultatio n ABDOMEN: bowel sounds normal, no ascites, no organomegaly, no mass, centripital obesity NEUROLOGIC: alert and oriented, cranial nerves 2-12 grossly intact, deep tendon reflexes 2+ symmetrical, motor strength normal upper and lower extremities, sensory exam intact SKIN: no suspicious lesion s, anicteric PERIPHERAL PULSES: normal BREASTS: Not examined MUSCULOSKELETAL: extremities unremark able, no clubbing, cyanosis or edema LYMPH NODES: no enlarged lymph no magalie,spleen normal RECTAL EXAM: not examined PSYCH: alert, oriented ORAL CAVITY: normal, unremarkable
== END 2024-10-05 14:00 | disposition home or self-care (01) ==
LOC: HO.LAB 13:59
PROVIDERS: PCP Internal Medicine Medical Oncology; Visit Provider Internal Medicine Medical Oncology
DX: Z13.89 Encounter for screening for other disorder (principal)

== ENCOUNTER 2024-10-06 07:00 | Outpatient (REF) | payer MEDICARE, SELFPAY ==
[2024-10-07 12:00] LABS: Urine Cytology See Pathology rpt
--- OUTSIDE RECORDS SUMMARY | 2024-10-07 12:22 | XMS_ITS ---
Author Organization Zain Steiner III, MD Address [address] [place] [address] [address] [place] [address] Care Team Providers Care Oracle Solutions Architect Name Role Phone Zain Steiner Primary Care [...] W/U Status Risk Notes Problem Weight decreased (733643933) Weight loss, abnormal (R63.4) Active confirmed Since [...] Date Provider Diagnosis Zain Steiner III, MD [address] [place] [address] [place] [address] 09/30/2024 Zain Steiner Essential hypertensi on I10 [...] (ICD-10 - J30.9) She has successfully used gnjj-egs-fqjdzfp medication and will continue to do so. 09/30/2024 Bilateral hearing loss, unspecified hearing loss type (ICD-10 - H91.93) She will notify me if she wants to see the muck boss to consider amplification. We communicated fairly well [...] Provider Name:Zain Steiner, 10/29/2024 10:00:00 AM, [address] [facility] [address], [place], [address], Provider Name:Zain Steiner, 03/28/2025 10:30:00 AM, [address] [facility] [address], [place], [address], Progress Notes * Kayce HUITRONOB:1935 (89 yo F)Acc No.[id number]:09/30/2024 Progress Notes Patient:?Gwendolyn HUITRON Provider:?Zain Steiner MD :1935???Age:89 Y???Sex:Female D ate:09/30/2024 Address:[address], [phone] Subjective: * Chief Complaints: * ???Involuntary wt [...] Tobacco Non-User?Aggressive non-smoker ???She was born in [place], [place]. She has been to Jaquan for 57 years. She has 3 healthy children and 4 healthy grandchildren. 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 Her is a seasonal greenery bundler at the [employer]. She has no occupational exposures. * Medications:?TakingMetoprolo [...] trigger - J30.9???Notes :She has successfully used uxuz-kos-acpgyih medication and will continue to do so.???6.?Bilateral hearing loss, unspecified hearing loss type - H91.93???Notes :She will notify me if she wants to see the muck boss to consider amplification. We communicated fairly well [...] Provider:?Zain Steiner MD Date:?09/16 Generated for Ellyn christie/Tete/eTransmitting on:?10/07/2024 12:22 PM EDT History and Physical Notes * [...]
--- OUTSIDE RECORDS SUMMARY | 2024-10-07 12:22 | XMS_ITS ---
Author Organization Zain Steiner III, MD Address [address] [place] [address] [address] [place] [address] Care Team Providers Care Decorating Machine Operator Name Role Phone Zain Steiner Primary Care Provider Reason For Referral Reason Urgent request pleas e Evaluate and treatment for ? Bladder cancer bladder mass seen on Ct scan abd/pelvis Diagnosis 1 Weight loss (R63.4) Diagnosis 2 Bladder mass (N32.89 ) Referral Organization Zain Steiner III, MD Referring Provider First Name Zain Referring Provider Last Name Jatin Referring Provider Speciality Internal M edicine Referred Provider [facility] er, Urology Referred Provider Specialty Urology General Notes Jil Bruno CMA 10/05 11:26:17 AM >Ashwini called [facility] de[facility] they stated the referral/progress note/testing needs to be faxed to them stating this is a urgent request, Jil Bruno CMA 10/05/2024 11:49:39 AM >ref/progress note;/ Ct scan abd pelvis faxed to [facility] deptLevar Amber 10/05/2024 01:48:58 PM > [facility] has received the URGENT referral. It is being brought to the nurse to be triaged LENIKiana Suzanne CMA 10/07/2024 09:27:02 AM >I spoke to pt he stated pt has appt with Dr Holland for 10/12/2024 9:15am Referral Priority Routine Referral Appointment Date 10/12/2024 REASON FOR VISIT Message Social History Sex Assigned At : Social History Observation Description Sex Assigned At Female Encounters Encounter Location Date Provider Diagnosis Zain Steiner III, MD [address] [place] [address] [place] [id number] 10/05/2024 Zain Steiner Weight loss R63.4 and Bladder mass N32.89 Assessments Encounter Date Diagnosis (ICD Code) Assessment Notes Treatment Notes Treatment Clinical Notes 10/05/2024 Weight loss (ICD-10 - R63.4) 10/05/2024 Bladder mass (ICD-10 - N32.89) Plan Of Treatment Pending Test Test Name Order Date CYTOLOGY (NON-SUPERVISOR CONDITIONING YARD) 10/05/2024 Referrals Referral Date Details 10/05/2024 10/05/2024, Urgent r equest please Evaluate and treatment for ? Bladder cancer bladder mass seen on Ct scan abd/pelvis, Urology [facility] Next Appt Details Provider Name:Zain Steiner, 10/29/2024 10:00:00 AM, [address] [place] [address] [address], [place], [address], Provider Name:Zain Steiner, 03/28/2025 10:30:00 AM, [address] [place] [address] [address], [place], [id number], Progress Notes * Kayce HUITRONOB:1935 (89 yo F)Acc No.[id number]:10/05/2024 Patient:?Gwendolyn HUITRON :1935???Age:89 Y???Sex:Female Address:[address], [address] Subjective: * Chief Complaints: * ???Message * Medical History:? * Surgical History:? * Hospitalization/Major Diagno stic Procedure:? * Medications:? Objective: * Vitals:? * Physical Examination:? Assessment: * Assessment: 1.?Weight loss - R63.4???2.? Bladder mass - N32.89??? Plan: * Treatment: 2.?Bladder mass?LAB: CYTOLOGY (NON-SUPERVISOR CONDITIONING YARD)? Referral To:Urology [facility]??Urology ?Reason:Urgent request please Evaluate and treatment for ? Bladder cancer bladder mass seen on Ct scan abd/pelvis * Procedure Codes:? * true * Date:? Generated for Ellyn christie/Tete/Tamekaitting on:?10/07/2024 12:21 PM EDT Consultation Request Notes Referral Date Referring Provider Referred Provider Not es 10/05/2024 Jatin [facility], Urology Urgent request please Evaluate and treatment for ? Bladder cancer bladder mass seen on Ct scan abd/pelvis
--- OUTSIDE RECORDS SUMMARY | 2024-10-07 12:22 | XMS_ITS | Patient Health Record ---
Author Organization Zain Steiner III, MD Address [address] [place] [address] [address] [place] [address] Care Team Providers Care Coating Inspector Name Role Phone Zain Steiner Primary Care [...] Provider Speciality Internal M edicine Referred Provider [facility] er, Urology Referred Provider Specialty Urology General Notes Jil Bruno CMA 10/05 11:26:17 AM >Ashwini called [place] [facility] they stated the referral/progress note/testing needs to be faxed to them stating this is a urgent request, Jil Bruno CMA 10/05/2024 11:49:39 AM >ref/progress note;/ Ct scan abd pelvis faxed to [place] [facility], Ashwini Cristobal 10/05/2024 01:48:58 PM > [facility] has received the URGENT referral. It is being brought to the nurse to be triaged LENI, Jil Bruno CMA 10/07/2024 09:27:02 AM >I spoke to pt he stated pt has appt with Dr Holland for 10/12/2024 9:15am Referral Priority Routine Referral Appointment Date 10/12/2024 Medications Medication SIG (Take, Route, Frequency, Duration) [...] W/U Status Risk Notes Problem Weight decreased (074146173) Weight loss, abnormal (R63.4) Active confirmed Since her l ast visit she has lost 15 pounds and has a poor appetite. The cause is not immediately apparent. Her workup has been started. Problem [id number] Essential hypertension (I10) Active confirmed Her blood pressure is 138/70. No changes in the regimen were needed. Problem 600128375 Environmental allergies (Z91.09) Active confirmed Her allergies have been minimal recently. No change in her regimen was needed. Problem Hyperlipidaemia (31316976) Hyperlipidemia, unspecified hyperlipidemia type (E78.5) Active confirmed No recent comprehensive blood work is available. Blood work has been ordered prior to her next visit. No change in her medications was needed today. Problem 49123248 Bilateral hearing loss, unspecified hearing loss type (H91.93) Active confirmed She will notify me if she wants to see the diesel truck technician to consider amplification. We communicated fairly well today. Problem 96454445 Cataract of both eyes, unspecified cataract type (H26.9) Active confirmed Her cataract surgery was successful and she is pleased with her improved vision. Problem 86781236 Allergic rhinitis, unspecified seasonality, unspecified trigger (J30.9) Active confirmed She has successfully used oovm-kzw-yqsrv er medication and will continue to do so. Problem 967806881 Bladder mass (N32.89) Active confirmed Vital Signs Heart Rate 88 /min 09/30/2024 Temperature 98.6 degrees Fahrenheit 09/30/2024 Oximetry 97, 97.0 % 06/03/2024 Blood pressure diastolic 70 mm Hg 09/30/2024 Height 65 in 09/30/2024 Blood pressure systolic 138 mm Hg 09/30/2024 Weight 129 lbs 09/30/2024 BMI 21.46 kg/m2 09/30/2024 Encounters Encounter Location Date Provider Diagnosis Zain Steiner III, MD [address] [place] [address] [place] [address] 11/25/2023 Zain Steiner Essential hypertensi on I10 ; Hyperlipidemia, unspecified hyperlipidemia type E78.5 ; Allergic rhinitis, unspecified seasonality, unspecified trigger J30.9 ; Environmental allergies Z91.09 ; Age-related nuclear cataract of both eyes H25.13 ; Breast calcifications R92.1 and Bilateral hearing loss, unspecified hearing loss type H91.93 Zain Steiner III, MD [address] [place] [address] [place] [address] 03/25/2024 Zain Steiner Essential hypertensi on I10 ; Allergic rhinitis, unspecified seasonality, unspecified trigger J30.9 ; Environmental allergies Z91.09 ; Age-related nuclear cataract of both eyes H25.13 and Bilateral hearing loss, unspecified hearing loss type H91.93 Zain Steiner III, MD [address] [place] [address] [place] [address] 06/03/2024 Zain Steiner Essential hypertensi on I10 ; Hyperlipidemia, unspecified hyperlipidemia type E78.5 ; Environmental allergies Z91.09 and Allergic rhinitis, unspecified seasonality, unspecified trigger J30.9 Zain Steiner III, MD [address] [place] [address] [place] [address] 09/30/2024 Zain Steiner Essential hypertensi on I10 ; Weight loss, abnormal R63.4 ; Hyperlipidemia, unspecified hyperlipidemia type E78.5 ; Environmental allergies Z91.09 ; Allergic rhinitis, unspecified seasonality, unspecified trigger J30.9 and Bilateral hearing loss, unspecified hearing loss type H91.93 Zain Steiner III, MD [address] [place] [address] [place] [address] 10/05/2024 Zain Steiner Weight loss R63.4 an [...] (ICD-10 - J30.9) She has successfully used qhbg-ycs-wyixddr medication and will continue to do so. [...] (ICD-10 - J30.9) She has successfully used poyj-sfx-vzaohuc medication and will continue to do so. [...] (ICD-10 - J30.9) She has successfully used hdgl-prs-msacotx medication and will continue to do so. 09/30/2024 Environmental allergies (ICD-10 - Z91.09) 11/25/2023 Age-related nuclear cataract of both eyes (ICD-10 - H25.13) Her vision has not changed. She will notify me if she begins to have significant changes in her acuity. 03/25/2024 Bilateral hearing loss, unspecified hearing loss type (ICD-10 - H91.93) She will notify me if she wants to see the diesel truck technician to consider amplification. We communicated fairly well today. 09/30/2024 Allergic rhinitis, unspecified seasonality, unspecified trigger (ICD-10 - J30.9) She has successfully used zvjz-vaj-pgdcqjx medication and will continue to do so. 11/25/2023 Breast calcification s (ICD-10 - R92.1) A recent mammogram was unremarkable. She is examining her breast recently with no findings. 09/30/2024 Bilateral hearing loss, unspecified hearing loss type (ICD-10 - H91.93) She will notify me if she wants to see the diesel truck technician to consider amplification. We communicated fairly well today. 11/25/2023 Bilateral hearing loss, unspecified hearing loss type (ICD-10 - H91.93) She will notify me if she wants to see the diesel truck technician to consider amplification. We communicated fairly well today. Plan Of Treatment Pending Test Test Name Order Date PROFILE, FASTING (COMPREHENSIVE METABOLI C) 11/25/2023 PROFILE, FASTING (COMPREHENSIVE METABOLI C) 03/18/2022 PROFILE, FASTING (COMPREHENSIVE METABOLI C) 05/31/2020 PROFILE, FASTING (COMPREHENSIVE METABOLI C) 09/28/2019 PROFILE, FASTING (COMPREHENSIVE METABOLI C) 03/07/2021 PROFILE, FASTING (COMPREHENSIVE METABOLI C) 12/12/2022 PROFILE, FASTING (COMPREHENSIVE METABOLI C) 09/13/2021 PROFILE, FASTING (COMPREHENSIVE METABOLI C) 07/25/2023 PROFILE, FASTING (COMPREHENSIVE METABOLI C) 06/03/2024 PROFILE, FASTING (COMPREHENSIVE METABOLI C) 08/04/2018 PROFILE, FASTING (COMPREHENSIVE METABOLI C) 02/29/2020 PROFILE, FASTING (COMPREHENSIVE METABOLI C) 03/25/2019 PROFILE, FASTING (COMPREHENSIVE METABOLI C) 11/29/2020 PROFILE, FASTING (COMPREHENSIVE METABOLI C) 09/12/2022 PROFILE, FASTING (COMPREHENSIVE METABOLI C) 11/23/2019 PROFILE, FASTING (COMPREHENSIVE METABOLI C) 06/15/2021 PROFILE, FASTING (COMPREHENSIVE METABOLI C) 03/20/2023 LIPID PANEL 11/23/2019 LIPID PANEL 03/20/2023 LIPID PANEL 03/18/2022 LIPID PANEL 05/31/2020 LIPID PANEL 09/28/2019 LIPID PANEL 12/12/2022 LIPID PANEL 09/13/2021 LIPID PANEL 07/25/2023 LIPID PANEL 08/04/2018 LIPID PANEL 02/29/2020 LIPID PANEL 03/25/2019 LIPID PANEL 09/12/2022 LDH 11/23/2019 TSH (THYROID STIMULATING HORMONE) 2024 CEA 09/30/2024 CBC w DIFF 08/04/2018 CBC w DIFF 02/29/2020 CBC w DIFF 06/15/2021 CBC w DIFF 03/25/2019 CBC w DIFF 09/12/2022 CBC w DIFF 03/20/2023 CBC w DIFF 03/18/2022 CBC w DIFF 11/23/2019 CBC w DIFF 03/07/2021 CBC w DIFF 05/31/2020 CBC w DIFF 09/28/2019 CBC w DIFF 12/12/2022 CBC w DIFF 09/13/2021 CBC w DIFF 11/29/2020 SED RATE (ESR) 09/30/2024 CYTOLOGY (NON-ROBOTIC TOY INVENTOR) 10/05/2024 CT ABD & PELVIS WITH IV CONT ONLY 2024 MAMMOGRAM DIGITAL BILATERAL SCREEN 03/18 MAMMOGRAM DIGITAL UNILATERAL HONEY LT 05/06/2018 US BREAST LEFT 08/04/2018 US BREAST RIGHT 08/04/2018 CBC WITH AUTO DIFF 11/25/2023 CBC WITH AUTO DIFF 06/03/2024 CBC WITH AUTO DIFF 07/25/2023 Lipid Panel 11/29/2020 Lipid Panel 06/15/2021 Lipid Panel 11/25/2023 Lipid Panel 03/07/2021 Lipid Panel 06/03/2024 Free T4 (Free Thyroxine) 09/30/2024 Next Appt Details Provider Name:Zain Steiner, 10/29/2024 10:00:00 AM, [address] [place] [address] [address], [place], [address], Provider Name:Zain Steiner, 03/28/2025 10:30:00 AM, [address] [place] [address] [address], [place], [address], Insurance Providers Payer Name Payer Address Payer Phone Subscriber Number Group Number Insured Name Patient Relationship to Insured Coverage Start Date Coverage End Date MEDICARE NGS [address] [place] [phone] [id number] Gwendolyn Gutierrez Self - patient is the [...]
--- OUTSIDE RECORDS SUMMARY | 2024-10-07 12:22 | XMS_ITS ---
Author Organization Zain Steiner III, MD Address [address] [place] [address] Care Team Providers Care Profile Mill Operator Tape Control Name Role Phone Zain Steiner Primary Care Provider [phone] REASON FOR VISIT follow up Social History Sex Assigned At : Social History Observation Description Sex Assigned At Female Encounters Encounter Location Date Provider Diagnosis Zain Steiner III, MD [address] [place] [address] [place] [address] 10/01/2024 Zain Steiner Plan Of Treatment Next Appt Details Provider Name:Zain Steiner, 10/29/2024 10:00:00 AM, [address] [place] [address] [place], [address], Provider Name:Zain Steiner, 03/28/2025 10:30:00 AM, [address] [place] [address] [place], [address], Progress Notes * TOMY GordoWileyOB:1935 (89 yo F)Acc No.[id number]:10/01/2024 Progress Notes Patient:?Gwendolyn HUITRON Provider:?Zain Steiner MD :1935???Age:89 Y???Sex:Female D ate:10/01/2024 Address:[address], [id number] Subjective: * Chief Complaints: * ???1. Follow up. * Medical History:? Objective: * Vitals:? Assessment: Plan: * Treatment: * Images: * The named appointment provid er may or may not be the originator of this progress note, and it is not deemed complete until electronically signed by the appointment provider. Sign off status: Pending * Provider:?Zain Steiner MD Date:?09/16 Generated for Ellyn christie/Tete/Raquel on:?10/07/2024 12:21 PM EDT
== END 2024-10-06 07:01 | disposition home or self-care (01) ==
LOC: HO.LNP 07:00
PROVIDERS: Visit Provider Internal Medicine Medical Oncology
DX: R63.4 Abnormal weight loss (principal); N32.89 Other specified disorders of bladder
CPT/HCPCS: 88112

== ENCOUNTER 2024-10-12 08:44 | Outpatient (AMB) | payer MEDICARE, SELFPAY ==
--- NOTE | 2024-10-12 08:54 | A.OFFVIS_ITS ---
Intake Visit Reasons: bladder mass seen on CT scan Intake Note: Pt presents to the office today for a bladder mass seen on CT scan. Allergies No Known Allergies Allergy (Verified 10/12/24 08:58) HPI Comments Details: Gwendolyn is a pleasant female. She is a patient of Dr. Steiner. She is seen for the following urologic conditions - question of bladder mass Bladder wall thickening noted on CT scan performed for weight loss Describes minimal urgency frequency No blood seen Longstanding smoker No workplace exposure to chemicals Imaging - CT scan markedly thickened bladder wall Cytology pending Plan office cystoscopy [facility] Social History Alcohol intake: never Patient Tobacco Use Status: Never used Tobacco Review of Systems Const Denies chills and Denies fever(s) Card Reports no additional complaints and Denies syncope Resp Denies cough GI Denies abdominal pain and Denies heartburn Reports as per HPI and Denies change in libido Neuro Denies syncope Psych Denies change in libido Endo Denies change in libido Physical Exam Const General: cooperative, healthy appearing, comfortable and no acute distress Orientation/consciousness: patient oriented x3 HEENT Face and sinus: Yes normal facial exam Mouth: moist mucous membranes Neck Neck: Yes normal visual inspection, Yes full ROM and Yes trachea midline Chest Chest palpation & inspection: normal inspection of the chest Resp Effort & Inspection: normal respiratory effort, able to speak in complete sentences and no respiratory distress GI Inspection: Yes normal to inspection Back/Spine/Pelvis Cervical Spine: normal cervical lordosis Thoracic/Lumbar Spine: thoracic and lumbar spine normal to inspection Skin General skin exam: no rashes or lesions noted Neuro General: patient oriented x3, gait normal, tone normal and moves all extremities Extrem General: Yes normal to inspection and Yes capillary refill normal Assessment & Plan Assessment & Plan (1) Bladder wall thickening: Code(s): N32.89 - Other specified disorders of bladder Category: Medical Plan Office cystoscopy Patient Instructions: This note is constructed using voice recognition software. While every effort has been made to ensure accuracy commercial interior designer errors may have been included. Imaging studies, laboratory and physical exam results were discussed and reviewed in detail. No major barriers to patient understanding were identified. An opportunity to ask questions regarding the treatment plan was provided. All questions were answered. The patient expressed understanding and agreement with the above treatment plan. The patient is aware they should contact our office by phone for worsening of their current condition or the appearance of new urologic symptoms. Compliance is encouraged with any medications and followup testing that is ordered. It is a privilege to participate in the urologic care of your patient. If you have any questions or concerns regarding treatment for the above conditions, or other urologic issues, please do not hesitate to contact me. The office telephone contact is [phone]. Sincerely, Dr Osmany Holland MD, [facility] - Urology Compassionate Specialist Care for the Genitourinary System Coding Level of Care Code New Pt Level 3 (60728) Diagnoses Bladder wall thickening N32.89
--- OUTSIDE RECORDS SUMMARY | 2024-10-12 09:02 | XMS_ITS ---
Author Organization Zain Steiner III, MD Address [address] [place] [address] Care Team Providers Care Preventive Medicine Officer Name Role Phone Zain Steiner Primary Care Provider [phone] REASON FOR VISIT follow up Social History Sex Assigned At : Social History Observation Description Sex Assigned At Female Encounters Encounter Location Date Provider Diagnosis Zain Steiner III, MD [address] [place] [address] [place] [address] 10/01/2024 Zain Steiner Plan Of Treatment Next Appt Details Provider Name:Zain Steiner, 10/29/2024 10:00:00 AM, [address] [place] [address] [place], [address], Provider Name:Zain Steiner, 03/28/2025 10:30:00 AM, [address] [place] [address] [place], [address], Progress Notes * TOMY GordoWileyOB:1935 (89 yo F)Acc No.[id number]:10/01/2024 Progress Notes Patient:?Gwendolyn HUITRON Provider:?Zain Steiner MD :1935???Age:89 Y???Sex:Female D ate:10/01/2024 Address:[address], [id number] Subjective: * Chief Complaints: * ???1. Follow up. * Medical History:? Objective: * Vitals:? Assessment: Plan: * Treatment: * Images: * The named appointment provid er may or may not be the originator of this progress note, and it is not deemed complete until electronically signed by the appointment provider. Sign off status: Pending * Provider:?Zain Steiner MD Date:?09/16 Generated for Ellyn christie/Tete/Raquel on:?10/12/2024 09:01 AM EDT
== END 2024-10-12 10:22 | disposition home or self-care (01) ==
LOC: HO.HUSH 08:45
PROVIDERS: PCP Internal Medicine Medical Oncology; Referring Provider Urology; Visit Provider Urology
DX: N32.89 Other specified disorders of bladder (principal)
CPT/HCPCS: 99203

== ENCOUNTER → 2024-10-12 08:44 | Outpatient (BNVA) | payer MEDICARE, SELFPAY | PROVIDERS: PCP Internal Medicine Medical Oncology; Visit Provider Urology | DX: N32.89 Other specified disorders of bladder (principal) | CPT/HCPCS: 99202 ==

== ENCOUNTER 2024-10-13 12:17 | Outpatient (REF) | payer MEDICARE, SELFPAY ==
--- OUTSIDE RECORDS SUMMARY | 2024-10-13 13:00 | XMS_ITS ---
Author Organization Zain Steiner III, MD Address [address] [place] [address] Care Team Providers Care Clinical Research Specialist Name Role Phone Zain Steiner Primary Care Provider REASON FOR VISIT follow up Social History Sex Assigned At : Social History Observation Description Sex Assigned At Female Encounters Encounter Location Date Provider Diagnosis Zain Steiner III, MD [address] [place] [address] [place] [address] 10/01/2024 Zain Steiner Plan Of Treatment Next Appt Details Provider Name:Zain Steiner, 10/29/2024 10:00:00 AM, [address] [place] [address] [place], [address], Provider Name:Zain Steiner, 03/28/2025 10:30:00 AM, [address] [place] [address] [place], [address], Progress Notes * TOMY GordoWileyOB:1935 (89 yo F)Acc No.[id number]:10/01/2024 Progress Notes Patient:?Gwendolyn HUITRON Provider:?Zain Steiner MD :1935???Age:89 Y???Sex:Female D ate:10/01/2024 Address:[address], [phone] Subjective: * Chief Complaints: * ???1. Follow up. * Medical History:? Objective: * Vitals:? Assessment: Plan: * Treatment: * Images: * The named appointment provid er may or may not be the originator of this progress note, and it is not deemed complete until electronically signed by the appointment provider. Sign off status: Pending * Provider:?Zain Steiner MD Date:?09/16 Generated for Ellyn christie/Tete/Raquel on:?10/13/2024 12:59 PM EDT
[2024-10-13 16:48] LABS: Urine Cytology See Pathology rpt
== END 2024-10-13 12:18 | disposition home or self-care (01) ==
LOC: HO.LAB 12:17
PROVIDERS: Visit Provider Urology
DX: N39.0 Urinary tract infection, site not specified (principal)
CPT/HCPCS: 88112; 88305

== ENCOUNTER → 2024-10-13 12:18 | Outpatient (BNV) | payer MEDICARE, SELFPAY | PROVIDERS: PCP Internal Medicine Medical Oncology; Visit Provider Urology | DX: Z13.9 Encounter for screening, unspecified (principal) | CPT/HCPCS: 81003 ==

== ENCOUNTER 2024-10-21 12:40 | Outpatient (AMB) | payer MEDICARE, SELFPAY ==
--- NOTE | 2024-10-21 13:04 | A.OFFVIS_ITS ---
Intake Visit Reasons: Cysto Intake Note: Patient is present for Cystoscopy Urology Medication:none Antibiotic Allergy:none Blood Thinner:none Lot:[id number] Exp:09/24/26 Garage Door Opener Installer Required: No Allergies No Known Allergies Allergy (Verified 10/21/24 13:04) HPI Comments Details: Gwendolyn is a pleasant female. She is a patient of Dr. Steiner. She is seen for the following urologic conditions - bladder wall thickening - chronic cystitis with incomplete emptying Here for cystoscopy Chronic cystitis Chronic cystitis with incomplete bladder emptying - trial low-dose doxazosin plus bethanechol Three-month follow-up Bladder wall thickening noted on CT scan performed for weight loss Describes minimal urgency frequency No blood seen Longstanding smoker No workplace exposure to chemicals Imaging - CT scan markedly thickened bladder wall Cytology - 10/10 NAD high-grade PFSH Social History Alcohol intake: never Patient Tobacco Use Status: Never used Tobacco Review of Systems Const Denies chills and Denies fever(s) Card Reports no additional complaints and Denies syncope Resp Denies cough GI Denies abdominal pain and Denies heartburn Reports as per HPI and Denies change in libido Neuro Denies syncope Psych Denies change in libido Endo Denies change in libido Physical Exam Const General: cooperative, healthy appearing, comfortable and no acute distress Orientation/consciousness: patient oriented x3 HEENT Face and sinus: Yes normal facial exam Mouth: moist mucous membranes Neck Neck: Yes normal visual inspection, Yes full ROM and Yes trachea midline Chest Chest palpation & inspection: normal inspection of the chest Resp Effort & Inspection: normal respiratory effort, able to speak in complete sentences and no respiratory distress GI Inspection: Yes normal to inspection Back/Spine/Pelvis Cervical Spine: normal cervical lordosis Thoracic/Lumbar Spine: thoracic and lumbar spine normal to inspection Skin General skin exam: no rashes or lesions noted Neuro General: patient oriented x3, gait normal, tone normal and moves all extremities Extrem General: Yes normal to inspection and Yes capillary refill normal Office Procedures Cystoscopy Consent Discussed risk and benefit or proposed procedure with the patient. Information consent for procedure given to the patient. Discussed technical aspects, risks, benefits and alternatives in full. Addressed all of the patient's questions and concerns regarding the procedure. The patient demonstrated knowledge and understanding. They wish to proceed with this procedure. Preparation The patient was prepped in the usual manner. A quencher operator was present and in the room. Genitalia was prepped with betadine solution in a sterile manner. Lidocaine Jelly 2% was placed into the urethra and 16Fr flexible Olympus cystoscope was inserted into the meatus after adequate lubrication. Procedure Meatus normal position Urethra normal Bladder examination with retroflexion of cystoscope Bladder Orifices normal Trigone metaplasia Bladder Capacity large Trabeculations Grade 0 Cellule Formation None Diverticulum Formation None Mucosal Erythema erythema posterior wall cystitis Bladder Tumor None 37877-[id number] DISPOSABLE SCOPE URO-G FLEXIBLE SCOPE Procedure code (CPT) selection complete Office Meds lidocaine HCl 2 % mucosal jelly in applicator Performing Provider: Osmany Holland MD Performing Location: [facility] Administered by: Lydia Diana RN on 10/21/24 13:29 Dose Route Admin Location Dispensed Lot Number Expiration Date [facility] Documentation Clerk 10 mL intra-urethral 10 mL nitrofurantoin monohydrate/macrocrystals 100 mg capsule Performing Provider: Osmany Holland MD Performing Location: [facility] Administered by: Lydia Diana RN on 10/21/24 13:29 Dose Route Admin Location Dispensed Lot Number Expiration Date [place] Documentation Clerk 100 mg PO 1 cap Assessment & Plan Assessment & Plan (1) Bladder wall thickening: Code(s): N32.89 - Other specified disorders of bladder Category: Medical (2) Chronic interstitial cystitis: Code(s): N30.10 - Interstitial cystitis (chronic) without hematuria Category: Medical Plan Start bethanechol Start alpha-lesa Orders: Orders AMB Cystoscopy Today N32.89 - Other specified disorders of bladder Medications: New bethanechol chloride 50 mg PO BID 30 days 60 tabs 2RF N39.0 - Urinary tract infection, site not specified doxazosin 1 mg PO BEDTIME 30 days 30 tabs 2RF N31.9 - Neuromuscular dysfunction of bladder, unspecified Patient Instructions: This note is constructed using voice recognition software. While every effort has been made to ensure accuracy logger all round errors may have been included. Imaging studies, laboratory and physical exam results were discussed and reviewed in detail. No major barriers to patient understanding were identified. An opportunity to ask questions regarding the treatment plan was provided. All questions were answered. The patient expressed understanding and agreement with the above treatment plan. The patient is aware they should contact our office by phone for worsening of their current condition or the appearance of new urologic symptoms. Compliance is encouraged with any medications and followup testing that is ordered. It is a privilege to participate in the urologic care of your patient. If you have any questions or concerns regarding treatment for the above conditions, or other urologic issues, please do not hesitate to contact me. The office telephone contact is [phone]. Sincerely, Dr Osmany Holland MD, [facility] - Urology Compassionate Specialist Care for the Genitourinary System Coding Level of Care Code Est Pt Level 4 (37898) Diagnoses Bladder wall thickening N32.89 Chronic interstitial cystitis N30.10 CPT Codes Cystoscopy - CPT: 10332-[id number] ([id number])
--- OUTSIDE RECORDS SUMMARY | 2024-10-21 14:47 | XMS_ITS ---
Author Organization Zain Steiner III, MD Address [address] [place] [address] Care Team Providers Care Shipping/Receiving Clerk Name Role Phone Zain Steiner Primary Care Provider REASON FOR VISIT follow up Social History Sex Assigned At : Social History Observation Description Sex Assigned At Female Encounters Encounter Location Date Provider Diagnosis Zain Steiner III, MD [address] [place] [address] [place] [address] 10/01/2024 Zain Steiner Plan Of Treatment Next Appt Details Provider Name:Zain Steiner, 10/29/2024 10:00:00 AM, [address] [place] [address] [place], [address], Provider Name:Zain Steiner, 03/28/2025 10:30:00 AM, [address] [place] [address] [place], [address], Progress Notes * TOMY GordoWileyOB:1935 (89 yo F)Acc No.[id number]:10/01/2024 Progress Notes Patient:?Gwendolyn HUITRON Provider:?Zain Steiner MD :1935???Age:89 Y???Sex:Female D ate:10/01/2024 Address:[address], [id number] Subjective: * Chief Complaints: * ???1. Follow up. * Medical History:? Objective: * Vitals:? Assessment: Plan: * Treatment: * Images: * The named appointment provid er may or may not be the originator of this progress note, and it is not deemed complete until electronically signed by the appointment provider. Sign off status: Pending * Provider:?Zain Steiner MD Date:?09/16 Generated for Ellyn christie/Tete/Raquel on:?10/21/2024 02:46 PM EDT
== END 2024-10-21 13:48 | disposition home or self-care (01) ==
LOC: HO.HUSH 12:41
PROVIDERS: PCP Internal Medicine Medical Oncology; Visit Provider Urology
DX: N32.89 Other specified disorders of bladder (principal); N30.10 Interstitial cystitis (chronic) without hematuria
CPT/HCPCS: 52000

== ENCOUNTER → 2024-10-21 12:40 | Outpatient (BNVA) | payer MEDICARE, SELFPAY | PROVIDERS: PCP Internal Medicine Medical Oncology; Visit Provider Urology | DX: N32.89 Other specified disorders of bladder (principal); N30.10 Interstitial cystitis (chronic) without hematuria | CPT/HCPCS: 52000 ==

== ENCOUNTER 2025-01-18 11:11 | Outpatient (AMB) | payer MEDICARE, SELFPAY ==
--- NOTE | 2025-01-18 11:17 | MHC.OFFVIS ---
Intake Visit Reasons: 3m/UA/PVR Intake Note: Patient is present for 3M/UA/PVR Urology Medication:DOXAZOSIN,BETHANECHOL CHLORIDE Antibiotic Allergy:NONE Blood Thinner:NONE TODAY'S PVR: 81ML'S Air Quality Instrument Specialist Required: No Allergies No Known Allergies Allergy (Verified 01/18/25 11:49) Medication List - Last Reconciled 01/18/25 by KENIA Johnson- atorvastatin 20 mg PO DAILY bethanechol chloride 50 mg PO BID 90 days doxazosin 1 mg PO BEDTIME 90 days metoprolol tartrate 100 mg PO BID HPI Comments Details: Gwendolyn is a pleasant 89-year-old female patient of Dr. Steiner who was accompanied by her significant other and daughter at today's office visit. She has a past medical history of hyperlipidema and hypertension. She presents to the office today for follow-up of her bladder wall thickening and chronic cystitis with incomplete bladder emptying. Of note, patient was seen approximately [address] Holland at which time she underwent an office cystoscopy that noted chronic cystitis at which time she was started on low-dose doxazosin and bethanechol. In discussion with the patient and her family today she reports to be doing and feeling well. She reports feeling she has been better with her bathroom behaviors. She also reports noting less episodes of urge/mixed urinary incontinence. In office urinalysis results reviewed with the patient today 3+ leukocytes negative nitrates. She currently denies any bothersome urinary issues. She denies urinary urgency, urinary frequency, nocturia, hematuria, dysuria, foul smelling urine, changes to urinary stream, flank pain, fever, and or chills. She is happy with her current voiding parameters. She reports feeling over the last 2-4 weeks she has had more bladder control in discusses how helpful this has been. In office urinalysis results reviewed with the patient today. PVR 81 mL. We did discussed potential causes of chronic cystitis, bladder wall thickening and incomplete bladder emptying. All questions were answered. She otherwise offers no other issues or concerns at this time. PREVIOUS OFFICE NOTE: She is seen for the following urologic conditions - bladder wall thickening - chronic cystitis with incomplete emptying Here for cystoscopy Chronic cystitis Chronic cystitis with incomplete bladder emptying - trial low-dose doxazosin plus bethanechol Three-month follow-up Bladder wall thickening noted on CT scan performed for weight loss Describes minimal urgency frequency No blood seen Longstanding smoker No workplace exposure to chemicals Imaging - CT scan markedly thickened bladder wall Cytology - 10/10 NAD high-grade PFSH Social History Alcohol intake: never Patient Tobacco Use Status: Never used Tobacco Review of Systems Const All systems reviewed & are unremarkable except as noted in HPI and below Physical Exam Const General: cooperative, healthy appearing, comfortable, no acute distress, well developed, alert and awake Orientation/consciousness: patient oriented x3 Limitations: ambulation with cane HEENT Head: Yes normal to inspection, Yes normocephalic and Yes atraumatic Ears: hearing grossly normal bilaterally Eyes General: appearance normal, both eyes and all related structures Neck Neck: Yes normal visual inspection and Yes trachea midline Chest Chest palpation & inspection: normal inspection of the chest Resp Effort & Inspection: normal respiratory effort and able to speak in complete sentences Cardio Rate: regular rate GI Inspection: Yes normal to inspection General: Yes no CVA tenderness Back/Spine/Pelvis Back: no CVA tenderness Skin General skin exam: no rashes or lesions noted Neuro General: patient oriented x3 Extrem General: Yes normal to inspection Psych Appearance: grossly normal and well kempt Mental Status: mental status grossly normal Speech and movement: Normal speech and movement present and Clear speech present Affect: normal affect Attitude: cooperative Thought process: Normal thought process present Thought content: Normal thought content present Insight: Fair insight present (Psych) Judgement: Fair judgement present (Psych) Office Procedures Post Void Residual Post Residual Void Post Void Residual (PVR): 81 [id number] Void Residual by ultrasound Results AMB Urinalysis, Automated UA Leukoctes 500 Guicho/uL Last Edit by HADLEY Knowles on 01/18/25 11:38 UA Nitrite Negative Last Edit by HADLEY Knowles on 01/18/25 11:38 UA Urobilinogen 0.2 mg/dL Last Edit by HADLEY Knowles on 01/18/25 11:38 UA Protein 30 mg/dL Last Edit by HADLEY Knowles on 01/18/25 11:38 UA pH 7.0 Last Edit by HADLEY Knowles on 01/18/25 11:38 UA Blood 80 Mahesh/uL Last Edit by HADLEY Knowles on 01/18/25 11:38 UA Specific [place] 1.010 Last Edit by HADLEY Knowles on 01/18/25 11:38 UA Ketone Negative Last Edit by HADLEY Knowles on 01/18/25 11:38 UA Bilirubin 0 mg/dL Last Edit by HADLEY Knowles on 01/18/25 11:38 UA Glucose 0 mg/dL Last Edit by HADLEY Knowles on 01/18/25 11:38 Results Reviewed Results Reviewed: Laboratory Last Values Urine pH (Auto) 7.0 01/18/25 11:37 Specific [place] (Auto) 1.010 01/18/25 11:37 Urine Protein (Auto) 30 mg/dL 01/18/25 11:37 Glucose (UA)(Auto) 0 mg/dL 01/18/25 11:37 Urine Ketones (Auto) Negative 01/18/25 11:37 Urine Blood (Auto) 80 Mahesh/uL 01/18/25 11:37 Urine Nitrite (Auto) Negative 01/18/25 11:37 Urine Bilirubin (Auto) 0 mg/dL 01/18/25 11:37 Urine Urobilinogen (Auto) 0.2 mg/dL 01/18/25 11:37 Leukocyte Esterase (Auto) 500 Guicho/uL 01/18/25 11:37 Assessment & Plan Assessment & Plan (1) Bladder wall thickening: Code(s): N32.89 - Other specified disorders of bladder Category: Medical (2) Chronic interstitial cystitis: Code(s): N30.10 - Interstitial cystitis (chronic) without hematuria Category: Medical (3) Microscopic hematuria: Code(s): R31.29 - Other microscopic hematuria Category: Medical (4) Urinary incontinence, mixed: Code(s): N39.46 - Mixed incontinence Category: Medical Plan In office urinalysis results reviewed with the patient today; as noted above. PVR 81 mL. She currently denies any bothersome urinary issues or concerns. She reports be happy with current voiding parameters. Will continue with low-dose doxazosin and bethanechol as prescribed; refill provided. We discussed importance of timed/scheduled voiding. All questions were answered. Follow-up in 3-6 months with PVR; or sooner with any issues, concerns, and or questions. Orders: Orders AMB Urinalysis Automated Today Z13.9 - Encounter for screening, unspecified Medications: Changed From doxazosin 1 mg PO BEDTIME 30 days 30 tabs 2RF N31.9 - Neuromuscular dysfunction of bladder, unspecified To doxazosin 1 mg PO BEDTIME 90 tabs 1RF 90 days N31.9 - Neuromuscular dysfunction of bladder, unspecified From bethanechol chloride 50 mg PO BID 30 days 60 tabs 2RF N39.0 - Urinary tract infection, site not specified To bethanechol chloride 50 mg PO BID 180 tabs 2RF 90 days N39.0 - Urinary tract infection, site not specified Patient Instructions: The patient had an opportunity to ask questions regarding the treatment plan. All questions were answered. Physical exam, labs, and imaging were discussed and reviewed in detail. As well as risks, benefits, and discussion of treatment choices. No major barriers to understanding were identified. The patient expressed understanding and agreement with the above treatment plan. The patient was made aware they should contact our office by phone for worsening of their current condition, the appearance of new symptoms, or with any questions or concerns. Compliance is encouraged with any medications and follow up testing that is ordered. It is a privilege to be allowed the opportunity to participate in? your urological care.? Again, if you have any questions or concerns If you have any questions or concerns please do not hesitate to contact me. The office is [phone]. This note is constructed using voice recognition software. While every effort has been made to ensure accuracy plaster pattern caster errors may have been included. Yours sincerely, MERCEDEZ Johnson Coding Level of Care Code Est Pt Level 3 (50078) Complex EM visit Add On G2211 Diagnoses Bladder wall thickening N32.89 Chronic interstitial cystitis N30.10 Microscopic hematuria R31.29 Urinary incontinence, mixed N39.46 CPT Codes Post Residual Void - PVR CPT Code: 81157-Ufig Void Residual by ultrasound ([id number])
== END 2025-01-18 11:51 | disposition home or self-care (01) ==
LOC: HO.HUSH 11:13
PROVIDERS: PCP Internal Medicine Medical Oncology; Visit Provider Nurse Practitioner Family
DX: N32.89 Other specified disorders of bladder (principal); N30.10 Interstitial cystitis (chronic) without hematuria; R31.29 Other microscopic hematuria; N39.46 Mixed incontinence; Z13.9 Encounter for screening, unspecified
CPT/HCPCS: 99213; G2211

== ENCOUNTER → 2025-01-18 11:11 | Outpatient (BNVA) | payer MEDICARE, SELFPAY | PROVIDERS: PCP Internal Medicine Medical Oncology; Visit Provider Nurse Practitioner Family | DX: N39.46 Mixed incontinence (principal); R31.29 Other microscopic hematuria; N30.10 Interstitial cystitis (chronic) without hematuria; N32.89 Other specified disorders of bladder; Z13.9 Encounter for screening, unspecified | CPT/HCPCS: 51798; 81003; 99212 ==